=== PATIENT | female | born 1955 ===

== ENCOUNTER 2017-04-12 09:13 | Day surgery (SDC) | payer OTHER ==
[2017-04-12] MEDS ORDERED: Lidocaine 2% Inj (20ml) ONE (09:31)
[2017-04-12] MEDS ORDERED: Midazolam 2 MG/2 ML VIAL ONE (09:31)
[2017-04-12] MEDS ORDERED: Iodixanol 320 MG/ML 200 ML BOTTLE IV ONE (09:32)
[2017-04-12] MEDS ORDERED: HEPARIN SODIUM/NS 2,000 ML IV ONE (09:32)
[2017-04-12] MEDS ORDERED: Iohexol 350mgl/ml 50 ML ONE (09:32)
[2017-04-12] MEDS ORDERED: Verapamil 2 ML ONE (10:55)
[2017-04-12] MEDS ORDERED: Nitroglycerin 50mg in D5W 50 MG/250 ML BOTTLE IV ONE (10:56)
[2017-04-12 12:46] VITALS: BMI 48.6
[2017-04-12] MEDS ORDERED: Bacitracin 500 Units/gm Oint Foilpak UD TOP ONE (12:56)
[2017-04-12] MEDS ORDERED: Sodium Chloride 0.9% 1,000 ML IV SCH (13:00)
[2017-04-12 14:38] VITALS: O2SAT 98
[2017-04-12] MEDS ORDERED: Bacitracin 500 Units/gm Oint Foilpak UD ONE (16:36)
[2017-04-12 18:04] VITALS: BP 138/74; PULSE 69; RESP 20; TEMP 98
--- NOTE | 2017-04-12 21:12 | CARD ---
APPROVED REPORT EKG Measurement Heart [id number] [place] [id number] <Conclusion> Normal sinus rhythm Normal ECG
--- NOTE | 2017-04-17 19:27 | CARDCATH ---
PROCEDURE DATE: 04/12/2017 PROCEDURES: Coronary angiogram and percutaneous coronary intervention of the left anterior descending coronary artery with drug-eluting stent. REFERRING PHYSICIAN: Antolin Red MD. PERFORMING PHYSICIAN: Chau Pierce MD. CLINICAL INDICATIONS 1. Unstable angina. 2. Coronary artery disease. 3. Hypertension. DESCRIPTION OF PROCEDURE: After informed consent, the patient was prepped and draped in the usual sterile fashion. A 2% lidocaine was given in the right wrist for local anesthesia. Using micropuncture technique, a 6-inch sheath was introduced into right radial artery. The patient was reloaded with aspirin, Plavix, and IV heparin. ACT was maintained above 250. Left main coronary artery was engaged using JL4 guide catheter. Initial angiogram revealed mid LAD tight 90% to 95% stenosis There was a SKYLER-2 flow distally. LAD was threaded with Runthrough coronary wire. The lesion was predilated using 2.5 x 12 compliant balloon. The lesion was stented with 3.5 x 18 Xience Alpine drug-eluting stent. Excellent final angiographic results with brisk SKYLER-3 flow noted. For the delivery of the stent, 6-[place] . SUMMARY: Successful coronary intervention of the mid LAD lesion with drug-eluting stent. Excellent final angiographic results were obtained. Dual-antiplatelet therapy for one year, then aspirin, beta-blockers, MANOJ inhibitors, and statin for life. The patient will be transferred to [facility] after two hours for further observation. Chau Pierce MD
== END 2017-04-12 18:33 | disposition short-term general hospital (02) ==
LOC: CATH 09:13 → 2RNO 12:30 → CATH 18:33
PROVIDERS: ATTEND Internal Medicine Cardiovascular Disease
DX: I25.110 Atherosclerotic heart disease of native coronary artery with unstable angina pectoris (principal); I11.0 Hypertensive heart disease with heart failure; I50.9 Heart failure, unspecified; I25.2 Old myocardial infarction; E11.9 Type 2 diabetes mellitus without complications; E03.9 Hypothyroidism, unspecified; E66.9 Obesity, unspecified; Z68.42 Body mass index [BMI] 45.0-49.9, adult
CPT/HCPCS: 85175; 93005; C1725; C1769 ×2; C1874; C1887 ×3; C9600; J1644 ×2; J2001; J2250; J3010; J7030; J7040; Q9967